=== PATIENT | female | born 1985 | race Caucasian/White ===

== ENCOUNTER 2016-07-28 11:52 | Emergency (ER) | payer OTHER ==
[~2016-07-28] VITALS: Ht 162.6 cm; Wt 69.0 kg
[2016-07-28 12:01] VITALS: Ht 162.6 cm; Wt 69.0 kg
[2016-07-28 14:04] LABS: URINE BLOOD (Dip) POC Negative (NEGATIVE)
[2016-07-28] MEDS ORDERED: CEPH-443 PO (14:17)
[2016-07-28] MEDS ORDERED: PHEN-537 PO (14:17)
--- NOTE | 2016-07-28 14:20 | ERD ---
ER Documentation Chief Complaint Date/Time DATE: 07/28/16 TIME: 14:18 Chief Complaint LOWER BACK PAIN RADIATING TO RT LOWER ABD X 3 DAYS HPI 31-year-old female is complaining of lower back pain worse on the right side for the past week. She also has right lower sided pelvic pain. She does admit to dysuria, he and urinary frequency. Denies hematuria. She states she think she has a UTI. Denies fever. Denies nausea vomiting or diarrhea. Has not taken any medications for this. ROS All systems reviewed and are negative except as per history of present illness. Medications Home Meds Active Scripts Phenazopyridine Hcl* (Pyridium*) 100 Mg Tab, 100 MG PO TID for 3 Days, TAB Prov:MOSES BORJA PA-C 07/28/16 Cephalexin* (Keflex*) 500 Mg Capsule, 500 MG PO BID, #14 CAP Prov:MOSES BORJA PA-C 07/28/16 Allergies Allergies: Coded Allergies: No Known Allergy (Unverified , 07/28/16) PMhx/Soc History of Surgery: Yes (appy ) Anesthesia Reaction: No Hx Neurological Disorder: No Hx Respiratory Disorders: No Hx Cardiac Disorders: No Hx Psychiatric Problems: No Hx Miscellaneous Medical Probl: No Hx Alcohol Use: No Hx Substance Use: No Hx Tobacco Use: No Smoking Status: Never smoker FmHx Family History: No diabetes Physical Exam Vitals Vital Signs Date Time Temp Pulse Resp B/P Pulse Ox O2 Delivery O2 Flow Rate FiO2 07/28/16 12:01 98.7 70 18 113/69 98 Physical Exam General: well developed, well nourished, alert, nontoxic, no distress Head: normocephalic, atraumatic Neck: Supple, nontender, no lymphadenopathy, no midline tenderness Respiratory: Clear to auscaultation bilaterally, speaks in full sentences, no use of accesory muscles or labored breathing, no rales, ronchi, or wheezing Cardiovascular: RRR, No murmurs GI: soft, non tender, non distended, negative murphys sign, negative mcburneys point tenderness, no cva tenderness bilaterally, no rebound or guarding Back: no midline tenderness, no step offs or bony abnormalities, sensation to light touch in tact Results 24 hrs Laboratory Tests Test 07/28/16 14:05 Bedside Urine pH (LAB) 5.5 Bedside Urine Protein (LAB) Trace Bedside Urine Glucose (UA) Negative Bedside Urine Ketones (LAB) Negative Bedside Urine Blood Negative Bedside Urine Nitrite (LAB) Positive Bedside Urine Leukocyte Esterase (L 1+ Procedures/MDM 31-year-old female was complaining of low back pain. Vital signs are normal. I doubt pyelonephritis or kidney stones. I doubt appendicitis or ovarian torsion. Urine is positive for infection. She is not . She is discharged with Keflex and Pyridium. Recommended this patient follow up with her primary care doctor within 48 hours or return to the emergency room for any worsening of symptoms. However this time I do believe there is suitable for outpatient management. I answered all their questions and they agreed with the plan and were discharged home. Departure Diagnosis: Primary Impression: Cystitis Condition: Stable Patient Instructions: Cystitis Additional Instructions: Call your primary care doctor TOMORROW for an appointment during the next 1-2 days.See the doctor sooner or return here if your condition worsens before your appointment time. MOSES BORJA PA-C July 28, 2016 14:20
== END 2016-07-28 14:25 | disposition home or self-care (01) ==
LOC: FTE 11:52
DX: N30.90 Cystitis, unspecified without hematuria (principal)
CPT/HCPCS: 81003; Z7502; 99283